=== PATIENT | male | born 1950 | race Caucasian/White ===

== ENCOUNTER 2020-04-01 18:11 | Emergency (ER) | payer MEDICARE, OTHER ==
[2020-04-01] MEDS ORDERED: Bacitracin 1 PK ONE (18:53)
[2020-04-01] MEDS ORDERED: Amoxicillin/Potassium Clav 875 MG TAB ONE (19:01)
== END 2020-04-01 19:15 | disposition home or self-care (01) ==
LOC: BURERS 18:11
DX: S61.412A Laceration without foreign body of left hand, initial encounter (principal); G62.9 Polyneuropathy, unspecified; W26.0XXA Contact with knife, initial encounter; Z79.899 Other long term (current) drug therapy; Z79.82 Long term (current) use of aspirin; I25.10 Atherosclerotic heart disease of native coronary artery without angina pectoris; F17.220 Nicotine dependence, chewing tobacco, uncomplicated
CPT/HCPCS: 12001

== ENCOUNTER 2022-04-25 16:23 | Emergency (ER) | payer MEDICARE ==
[2022-04-25] MEDS ORDERED: Boostrix 0.5 ML (Tdap) VIAL (>/=7 yrs of age) ONE (17:04)
== END 2022-04-25 17:20 | disposition home or self-care (01) ==
LOC: BURERS 16:23
DX: S61.311A Laceration without foreign body of left index finger with damage to nail, initial encounter (principal); F17.220 Nicotine dependence, chewing tobacco, uncomplicated; I25.10 Atherosclerotic heart disease of native coronary artery without angina pectoris; W26.0XXA Contact with knife, initial encounter; Y99.0 Civilian activity done for income or pay; Z23 Encounter for immunization
CPT/HCPCS: 12001; 90471; 90715